=== PATIENT | female | born 1985 | race Caucasian/White ===

== ENCOUNTER 2017-09-24 00:30 | Emergency (ER) | payer SELFPAY ==
[~2017-09-24] VITALS: Ht 167.6 cm; Wt 70.3 kg
[~2017-09-24 00:30] MED LIST: FLEXERIL PO; HYDROCODONE-AP1 EAC6 PO; IBUPROFEN 800800 M1 PO; NOHOMEMEDICATIONS; ZPAK PO
[2017-09-24 01:13] LABS: INFLUENZA B ANTIGEN None Detected (None Detect)
[2017-09-24] MEDS ORDERED: OSELB75 PO (01:20)
[2017-09-24] MEDS ORDERED: HYDROCODON-ACE1 EAC7 PO (01:20)
[2017-09-24 01:34] VITALS: BP 133/83
== END 2017-09-24 01:35 | disposition home or self-care (01) ==
LOC: M.ERS 00:30
PROVIDERS: Emergency Medicine
DX: J11.1 Influenza due to unidentified influenza virus with other respiratory manifestations (principal); Z91.040 Latex allergy status; Z88.0 Allergy status to penicillin; Z88.1 Allergy status to other antibiotic agents; Z87.891 Personal history of nicotine dependence

== ENCOUNTER 2021-05-30 07:49 | Emergency (ER) | payer OTHER ==
[~2021-05-30] VITALS: Ht 167.6 cm; Wt 87.1 kg
[~2021-05-30 07:49] MED LIST changes: +HYDROCODON-ACE1 EAC7 PO; +OSELB75 PO
[2021-05-30] MEDS ORDERED: ZITHROMAX250 MG PO (08:06)
[2021-05-30 08:17] VITALS: BP 147/88
== END 2021-05-30 08:17 | disposition home or self-care (01) ==
LOC: M.ERS 07:49
DX: U07.1 COVID-19 (principal); Z79.2 Long term (current) use of antibiotics; Z91.040 Latex allergy status; Z88.0 Allergy status to penicillin; Z88.1 Allergy status to other antibiotic agents; Z87.891 Personal history of nicotine dependence